=== PATIENT | male | born 2000 | race Caucasian/White ===

== ENCOUNTER 2025-07-12 12:24 | Emergency (ER) | payer BC ==
[~2025-07-12] VITALS: Ht 180.3 cm; Wt 74.8 kg
[2025-07-12 12:37] VITALS: BP 108/66; TEMP 98.2
[2025-07-12] MEDS ORDERED: CLINDAMYCIN 900 MG/6 ML VIAL ONE (13:01)
[2025-07-12] MEDS: CLINDAMYCIN 900 MG/6 ML VIAL IM ONE (13:08)
[2025-07-12] MEDS ORDERED: IBUP-1490 PO (13:14)
[2025-07-12] MEDS ORDERED: CLIN300C12 PO (13:14)
[2025-07-12] MEDS ORDERED: IBUPROFEN 600 MG TABLET ONE (13:30)
[2025-07-12] MEDS: IBUPROFEN 600 MG TABLET PO ONE (13:43)
[2025-07-12 13:44] VITALS: O2SAT 97
== END 2025-07-12 13:45 ==
LOC: ER 12:24
DX: K04.7 Periapical abscess without sinus (principal)
CPT/HCPCS: 99285; 96372; J3490